=== PATIENT | female | born 1995 ===

== ENCOUNTER 2020-04-12 20:10 | Inpatient (IN) | payer OTHER ==
[~2020-04-12] VITALS: Ht 162.6 cm; Wt 72.6 kg
--- NOTE | ~2020-04-12 | OP ---
PATIENT NAME: YA JULES MEDICAL RECORD: [id number] :94 LOCATION:[facility][id number] ADMISSION DATE:04/13/20 SURGEON: MERRILL QUINTANA MD DATE OF OPERATION: 04/13/2020 PREOPERATIVE DIAGNOSIS: Postoperative bleeding. POSTOPERATIVE DIAGNOSES: 1. Postoperative bleeding. 2. Hemoperitoneum. 3. Active bleeding from the mesosalpinx. OPERATION PERFORMED: 1. Exploratory laparotomy. 2. Evacuation of hemoperitoneum. 3. Suture ligature of vessel. SURGEON: Merrill Quintana MD ANESTHESIOLOGIST: Mansoor Gerard MD ANESTHETICS: General. FINDINGS: Incision and hysterotomy with acute postoperative findings. Mesosalpinx of the right side with an arterial bleeding, less than a 2 mm vessel. SPECIMEN REMOVED: None applicable. ESTIMATED BLOOD LOSS: Intraoperative blood loss 150 mL, blood and clot removed from pelvis 600 mL. FLUIDS: 800 mL lactated Ringer's. URINE OUTPUT: Quantity sufficient. DRAINS: Tamayo to gravity. INDICATION: The patient is status post section with tubal ligation. Called to see the patient for active bleeding incision. The incision was inspected and found to be actively bleeding. The patient was consented for wound exploration and any indicated procedure. DESCRIPTION OF PROCEDURE: After informed consent is assured, the patient is taken to the operating room where anesthetic is obtained and the patient is prepped and draped. The subcuticular stitches removed and the space inspected. Other than some small bleeding vessels, no active bleeding is noted. The fascial incision is inspected and some slow bleeding is noted to come up from the fascial incision. The suture for the fascia is now opened and a large amount of clot is encountered. The clot is removed and the pelvis is copiously irrigated. An Roger retaining retractor is inserted and the uterus is brought to the incision. The tubal ligations sites are inspected and all ligatures are intact. The mesosalpinx of the right side has a small arterial bleeding vessel. This is controlled with suture ligation using a 3-0 Vicryl. After the bleeding vessel is ligated, the pelvis continues to be irrigated until all clot and OPERATIVE REPORT [id number] YA JULES debris are removed. Inspection of the hysterotomy and the peritoneal edges of the bladder flap are inspected and slow bleeding vessels are noted here. Geronimo is placed over this with good effect. The sponge count was not performed prior to this procedure due to its urgency. The tentative count was correct and the fascia is closed with Vicryl. Subcutaneous tissue is irrigated, bleeding vessels cauterized, and the skin now reapproximated with stephen. Pressure dressing is applied. The immediate dermatologist x-ray performed postoperatively reveals no intraabdominal or pelvic retained sponge or instrument. NTS:[id number] Voice Confirmation ID: [id number] DOCUMENT ID: [id number] 04/18/2020 Edited for operation performed list per office, [email or web address]. MERRILL QUINTANA MD CC: [id number] DICTATION DATE: 04/13/20 1711 GALLERY ASSISTANT: 04/14/20 0022 DIS IN 04/15/20 [address] [place] [address]
[2020-04-12 21:08] LABS: BILIRUBIN NEGATIVE (NEGATIVE); GLUCOSE NEGATIVE (NEGATIVE); KETONE NEGATIVE (NEGATIVE); NITRITE NEGATIVE (NEGATIVE); UROBILINOGEN NORMAL (NORMAL)
[2020-04-12 21:09] LABS: RED CELLS - URINE 0-5 /hpf (0-5); WHITE CELLS - URINE 0-5 /hpf (NEGATIVE)
[2020-04-12 21:10] LABS: BACTERIA MODERATE /hpf (NEGATIVE)
[2020-04-12 21:20] LABS: UDS - AMPHET NEGATIVE QUAL (NEGATIVE); UDS - BARB NEGATIVE QUAL (NEGATIVE); UDS - BENZO NEGATIVE QUAL (NEGATIVE); UDS - COCAINE NEGATIVE QUAL (NEGATIVE); UDS - OPIATE NEGATIVE QUAL (NEGATIVE); UDS - PCP NEGATIVE QUAL (NEGATIVE); UDS - THC NEGATIVE QUAL (NEGATIVE)
[2020-04-12 21:57] VITALS: BP 134/80; Ht 162.6 cm; Wt 72.6 kg
[2020-04-13] VITALS (23 sets, daily range): BP systolic 95–131; BP diastolic 51–77
[2020-04-13 07:15] LABS: HEMATOCRIT 33.5 % (36.0-48.0); HEMOGLOBIN 10.4 g/dL (12-16); MCH 22.2 pg (26.0-34.0); MCV 71.6 fL (80.0-100.0); MEAN PLATELET VOLUME 10.3 fL (7.4-10.4); RBC 4.68 10x6/uL (4.00-5.40); RDW 14.1 % (11.5-14.5); WBC 6.3 10x3/uL (4.8-10.8)
--- NOTE | 2020-04-13 09:19 | NUR ---
UTERINE CUT MADE AT 0849.
--- NOTE | 2020-04-13 17:04 | NUR ---
INSTRUMENT COUNT WAS NOT DONE PRIOR TO SURGERY DUE TO EMERGENCY. XRAY WAS CALLED AND DONE AT END OF PROCEDURE. DR QUINTANA STAYED TO LOOK AT XRAY AND WAS CLEAR.
--- NOTE | 2020-04-13 19:33 | NUR ---
REC'D IN BED HOLDING AT THIS TIME. IV SITE TO LEFT HAND PATENT. IV SITE TO RT HAND PATENT. DRESSING TO ABDOMEN CDI. FUNDUS FIRM WITH SMALL LOCHIA NOTED. VSS. NO ACUTE DISTRESS NOTED. Rudi SAGE RN
--- NOTE | 2020-04-13 20:45 | NUR ---
PT IN BED. NO DISTRESS NOTED. UOP ADEQUATE WITH 50 ML NOTED IN UROMETER. WILL MONITOR. Rudi SAGE RN
--- NOTE | 2020-04-13 21:30 | NUR ---
PT REC;D IN BED. IV BEEPING AT THIS TIME. SITE CLEAR AND PATENT. 125 ML NOTED TO MACHADO CATH AT THIS TIME. NO DISTRESS NOTED. Rudi SAGE RN
--- NOTE | 2020-04-13 22:35 | NUR ---
PT REC'D IN BED AT THIS TIME. . NO DISTRESS NOTED AT THIS TIME. UROMETER WITH 125 ML NOTED. WILL CONTINUE TO MONITOR. Rudi SAGE RN
--- NOTE | 2020-04-13 23:30 | NUR ---
PT REC'D IN BED AT THIS TIME. NO DISTRESS NOTED. [id number] ML AT THIS TIME.Rudi SAGE RN
[2020-04-14] VITALS (13 sets, daily range): BP systolic 111–162; BP diastolic 56–81
--- NOTE | 2020-04-14 00:30 | NUR ---
PT RESTING WITH EYES CLOSED AT THIS TIME. EASILY AWAKENED AT THIS TIME. PERICARE PROVIDED AND 200 ML NOTED TO JEANNETTE SAGE RN
--- NOTE | 2020-04-14 02:54 | NUR ---
PT MEDICATED WITH DILAUDID 1 MG FOR PAIN LEVEL OF 6/10. WILL CONTINUE TO MONITOR. Rudi SAGE RN
--- NOTE | 2020-04-14 04:30 | NUR ---
PT REC'D IN BED ASLEEP AT THIS TIME. NO DISTRESS NOTED. UOP 200 ML AT THIS TIME. Rudi SAGE RN
[2020-04-14 05:22] LABS: BASOPHILS 0.1 % (0-2); EOSINOPHILS 0.3 % (0-7); IMMATURE GRANULOCYTES 0.4 % (0-5); LYMPHOCYTES 11.3 % (15-50); MCH 21.9 pg (26.0-34.0); MCHC 30.7 g/dL (31.0-37.0); MCV 71.6 fL (80.0-100.0); MEAN PLATELET VOLUME 10.4 fL (7.4-10.4); MONOCYTES 8.3 % (2-11); NEUTROPHILS 79.6 % (40-80); PLATELET COUNT 149 10x3/uL (130-400); RDW 14.1 % (11.5-14.5)
[2020-04-14 05:28] LABS: RBC 2.78 10x6/uL (4.00-5.40); WBC 9.3 10x3/uL (4.8-10.8)
[2020-04-14 05:29] LABS: HEMATOCRIT 19.9 % (36.0-48.0); HEMOGLOBIN 6.1 g/dL (12-16)
--- NOTE | 2020-04-14 06:10 | NUR ---
DR QUINTANA CALLED AT THIS TIME REGARDING LAB WORK AND ORDER REC'D TO TYPE AND CROSS FOR [address] THEM ON HOLD AT THIS TIME. Rudi SAGE RN
--- NOTE | 2020-04-14 07:12 | NUR ---
BEDSIDE REPORT REC'D. PAIN REASSESSMENT COMPLETED PER EMAR. ASSISTED WITH GETTING INFANT LATCHED PER PT REQUEST. DISCUSSED ADDITIONAL INTERVENTION FOR PAIN D/T REPORT OF NO CHANGE AND REFUSED BY PT AT THIS TIME. PT EDUCATED ON PAIN MANAGEMENT AND INTERVENTIONS AVAILABLE, VERBALIZES UNDERSTANDING AND DENIES QUESTIONS. BULKY DRSG TO LOWER TRANSVERSE ABD INCISION REMAINS IN PLACE, CLEAN DRY AND INTACT. NO DRAINAGE NOTED. WILL CONTINUE TO MONITOR AND COMPLETE ASSESSMENT FOLLOWING BF.
--- NOTE | 2020-04-14 08:11 | NUR ---
SHIFT ASSESSMENT COMPLETED PER FLOWSHEET. VSS. FUNDUS FIRM, MIDLINE AND U2 WITH SCANT RUBRA LOCHIA NOTED. C/O ABD AND INCISIONAL DISCOMFORT, MEDICATED PER EMAR. INFANT PLACED IN OPEN CRIB AND TAKEN TO NBN PER PT REQUEST. SIGNIFICANT OTHER LEAVING AT THIS TIME TO GO HOME TO CHECK TO CHECK ON OLDER CHILDREN AND SHOWER, PRESENT DURING ASSESSMENT AND POC DISCUSSION. INCENTIVE SPIROMETER AND COUGH/DEEP BREATHING DONE WITH GOOD EFFORT. SCD'S ON BLE. POC DISCUSSED WITH PT, VERBALIZES UNDERSTANDING. PERICARE DONE AND PADS AND TOWELS CHANGED. I&O DONE. ENCOURAGED PO FLUID INTAKE. ICE WATER PROVIDED. DENIES ADDITIONAL NEEDS AT THIS TIME. LAYING ON R SIDE. STATES THAT SHE IS GOING TO REST AT THIS TIME. BED IN LOW POSITION WITH SRUPX2. CALL LIGHT AND PHONE WITHIN REACH. WILL CONTINUE TO MONITOR.
--- NOTE | 2020-04-14 09:05 | NUR ---
PAIN REASSESSMENT COMPLETED. RESTING WITH EYES CLOSED IN SEMI-FOWLERS POSITION. RESP REGULAR AND UNLABORED, NO S/S OF DISTRESS NOTED. BED IN LOW POSITION WITH SRUP X2. CALL LIGHT AND PHONE WITHIN REACH. WILL CONTINUE TO MONITOR.
--- NOTE | 2020-04-14 10:30 | NUR ---
RN TO BEDSIDE. PT ASSISTED TO SITTING ON EDGE OF BED. REPORTS "A LITTLE" DIZZINESS, STATES "I DON'T FEEL LIKE I'M GOING TO PASS OUT BUT DEFINITELY A LITTLE DIZZY." ASSISTED BACK TO SEMI-FOWLERS POSITION. C/O ABD AND INCISIONAL DISCOMFORT, MEDICATED PER EMAR PER PT REQUEST. BED IN LOW POSITION WITH SRUP X2. CALL LIGHT AND PHONE WITHIN REACH. REQUEST SCD'S REMAIN OFF OR PERIOD OF TIME. INCENTIVE SPIROMETER DONE WITH GOOD EFFORT. INSTRUCTED NOT TO GET OOB WITHOUT ASSIST, VERBALIZES UNDERSTANDING.
--- NOTE | 2020-04-14 11:23 | NUR ---
PAIN REASSESSMENT COMPLETED. 12/18. ICE WATER PROVIDED. DENIES ADDITIONAL NEEDS. PERICARE DONE, PADS CHANGED. DRSG REMAINS CLEAN DRY AND INTACT WITH NO DRAINAGE.
--- NOTE | 2020-04-14 12:22 | NUR ---
DR. QUINTANA CALLS UNIT. REPORT GIVEN REGARDING PT C/O DIZZINESS WITH SITTING UP. ORDERS REC'D TO PROCEDE WITH TRANSFUSING 2 UNITS PRBC'S.
--- NOTE | 2020-04-14 13:35 | NUR ---
1ST UNIT PRBC TRANSFUSION INITIATED AT 100 MLS/HR TO R HAND, NO S/S OF INFILTRATION NOTED, FLUSHES WITHOUT DIFFICULTY. EDUCATED ON S/S OF PRBC TRANSFUSION REACTION TO REPORT TO RN, VERBALIZES UNDERSTANDING. RN REMAINS AT BEDSIDE AT THIS TIME. BONDING WITH .
--- NOTE | 2020-04-14 13:46 | NUR ---
R HAND PIV INFILTRATED. 18 G PIV TO L HAND FLUSHED WITHOUT DIFFICULTY. PRBC TRANSFUSION PAUSED AND SWITCHED TO L HAND. TOLERATING WELL, NO S/S OF INFILTRATION NOTED. R HAND PIV D/C'D WITH TIP INTACT, BANDAID PLACED.
--- NOTE | 2020-04-14 13:50 | NUR ---
NO S/S OF TRANSFUSION REACTION NOTED. VSS. NO S/S INFILTRATION NOTED TO L HAND PIV. RATE INCREASED TO 150 MLS/HR. WILL CONTINUE TO MONITOR. CONTINUES TO LAINEZ WITH INFANT. DENIES NEEDS AT THIS TIME. BED IN LOW POSITION WITH SRUPX 2. CALL LIGHT AND PHONE WITHIN REACH.
--- NOTE | 2020-04-14 14:05 | NUR ---
VSS. NO S/S OF TRANSFUSION REACTION NOTED. SITTING IN HIGH FOWLERS POSITION ON COMPUTER. FOB BONDING WITH . RATE INCREASED TO 200 MLS/HR. WILL CONTINUE TO MONITOR.
--- NOTE | 2020-04-14 14:24 | OP ---
PATIENT NAME: YA JULES MEDICAL RECORD: [id number] :94 LOCATION:[id number] ADMISSION DATE:04/13/20 SURGEON: MERRILL QUINTANA MD DATE OF OPERATION: 04/13/2020 PREOPERATIVE DIAGNOSES: 1. Labor at 38 weeks gestation. 2. History of section. 3. Unwanted fertility. POSTOPERATIVE DIAGNOSES: 1. Labor at 38 weeks gestation. 2. History of section. 3. Unwanted fertility. PROCEDURES: 1. Repeat low transverse section. 2. tubal ligation using a [place] technique. SURGEON: Merrill Quintana MD [employer] TE[employer]ER: William White. ANESTHESIA: Spinal. FINDINGS: Viable male infant, vertex presentation, Apgars 9 and 9, weight 6 pounds 1 ounce. Meconium stained fluid with a nuchal cord times 1 reduced. Unremarkable uterus, tubes, and ovaries bilaterally. SPECIMENS REMOVED: Tubes bilaterally. SPECIMEN DISPOSITION: Pathology. ESTIMATED BLOOD LOSS: 700 cc. FLUIDS: 2 liters lactated Ringer's. URINE OUTPUT: 400 cc of clear urine. COMPLICATIONS: None. DRAIN: Tamayo to gravity. INDICATIONS: The patient is a 25-year-old multiparous female who presents to labor and delivery with regular contractions. The patient is 38 weeks and 5 days. The patient also has unwanted fertility. Risks, benefits as well as alternatives to tubal ligation have been described to the patient. The patient wishes to proceed. DESCRIPTION OF PROCEDURE: After informed consent was assured, the patient was taken to the operating room where anesthetic was obtained. The patient was now placed in a leftward lateral tilt and prepped and draped. After assessment of the anesthetic, it was found to be adequate, an incision was made over the old scar. This was carried down to the underlying layer of the fascia, which was opened in the midline and extended laterally. Rectus bellies were dissected OPERATIVE REPORT [id number] YA JULES free superiorly and inferiorly and then in the midline. The peritoneum was entered sharply and the peritoneal opening extended. A DeLee all-purpose retractor was inserted and bladder flap developed. Bladder blade was now reinserted into the vesicouterine pouch and a low transverse hysterotomy was performed. Infant was delivered on to the abdomen atraumatically and the cord was doubly clamped and cut with the above findings. Placenta was delivered via Crede maneuver. Uterus exteriorized, cleared of all clot and debris. Uterus was now closed with a running stitch of Vicryl. A naxxob-la-vetpp stitch was applied to the left of midline to obtain hemostasis. Our attention was now directed to the right tube. A window was selected in the mesosalpinx and the space was opened. The ligature was applied to the distal and proximal segment and then the intervening segment of tube, which has been ligated was now removed with Metzenbaum scissors and the ostia cauterized. Attention was directed to the left tube where it was ligated and excised in similar manner. Again, the ostia was cauterized. The uterus and tubes are now returned to the abdomen after irrigation. The hysterotomy was inspected once the uterus was returned to the abdomen and adequate hemostasis was still achieved. Rectus bellies were reapproximated in the midline loosely and the fascia was closed with looped PDS. Sponge, lap, and needle counts were correct times 2. Subcutaneous tissue was irrigated. Bleeding vessels cauterized and the skin now reapproximated with a subcuticular stitch. Steri-Strips and sterile dressing applied. Sponge, lap, needle counts were correct times 3 at the close of this procedure. TRANSINT:[id number] Voice Confirmation ID: [id number] DOCUMENT ID: [id number] MERRILL QUINTANA MD at 1424 CC: [id number] DICTATION DATE: 04/13/20 1004 COMMERCIAL SALES MANAGER: 04/13/20 1410 ADM IN [id number] [place] [address]
--- NOTE | 2020-04-14 14:34 | NUR ---
VSS. NO S/S OF TRANSFUSION REACTION NOTED. L HAND PIV INFUSING WITHOUT DIFFICULTY. RATE INCREASED TO 250 MLS/HR. INFANT RESTING QUIETLY IN OPEN CRIB AT BEDSIDE. DENIES NEEDS AT THIS TIME. BED IN LOW POSITION WITH SRUP X2. CALL LIGHT AND PHONE WITHIN REACH. SCD'S BACK ON. INCENTIVE SPIROMETE DONE WITH GOOD EFFORT. WILL CONTINUE TO MONITOR.
--- NOTE | 2020-04-14 16:26 | NUR ---
1ST UNIT PRBC TRANSFUSION COMPLETED. NO S/S OF TRANSFUSION REACTION NOTED. VSS.
--- NOTE | 2020-04-14 16:33 | NUR ---
C/O ABD AND INCISIONAL DISCOMFORT, REQUESTS PERCOCET AND PROVIDED PER PT REQUEST. VSS. FUNDUS FIRM MIDLINE AND U1 WITH SCANT RUBRA LOCHIA, NO CLOTS NOTED. DRSG TO LOWER TRANSVERSE ABD INCISION CLEAN DRY AND INTACT, NO DRAINAGE NOTED.
--- NOTE | 2020-04-14 16:45 | NUR ---
2ND UNIT PRBC TRANSFUSION INITIATED TO L HAND PIV, INFUSING WITHOUT DIFFICULTY, NO S/S OF INFILTRATION NOTED, 100 MLS/HR. MACHADO D/C'D WITH 900 MLS CLEAR LIGHT YELLOW URINE EMPTIED. ASSISTED TO SITTING POSITION, DENIES DIZZINESS. ASSISTED TO STANDING POSITION WITH MOD ASSIST, INITIALLY DENIES DIZZINESS BUT FOLLOWING STANDING FOR SEVERAL MINUTES REPORTS DIZZINESS, PERICARE DONE, PADS AND PANTIES PLACED. CHUX AND TOWELS ON BED CHANGED. ASSISTED BACK TO BED. ASSISTED BACK TO BED AT 1657, TEARFUL AND C/O PAIN 9/10, MEDICATED PER EMAR. INSTRUCTED NOT TO GET OOB WITHOUT ASSIST, VERBALIZES UNDERSTANDING. CALL LIGHT AND PHONE PLACED WITHIN REACH. SPOUSE AT BEDSIDE, SUPPORTIVE AND ATTENTIVE TO PT AND INFANT NEEDS.
--- NOTE | 2020-04-14 17:03 | NUR ---
VSS. NO S/S OF TRANSFUSION REACTION. PRBC RATE INCREASED TO 150 MLS/HR. PT TAKING SLOW DEEP BREATHS. BED IN LOW POSITION WITH SRUP X2. CALL LIGHT AND PHONE WITHIN REACH. WILL CONTINUE TO MONITOR.
--- NOTE | 2020-04-14 17:25 | NUR ---
VSS. NO S/S OF TRANSFUSION REACTION NOTED. RATE INCREASED TO 200 MLS/HR. SITTING IN HIGH FOWLERS POSITION EATING DINNER TRAY. INFANT RESTING IN OPEN CRIB AT BEDSIDE. PAIN NOW 3-01/18. ICE WATER PROVIDED.
--- NOTE | 2020-04-14 18:28 | NUR ---
2ND UNIT PRBC TRANSFUSION COMPLETED AND SWITCHED TO FLUSH. TOLERATED WELL, NO S/S OF TRANSFUSION REACTION NOTED. VSS. DENIES NEEDS. BED IN LOW POSITION WITH SRUP X2. CALL LIGHT AND PHONE WITHIN REACH. WILL CONTINUE TO MONITOR.
--- NOTE | 2020-04-14 19:06 | NUR ---
THIS RN AND Rudi LABOY RN TO BEDSIDE FOR BEDSIDE SHIFT REPORT. PT AA&O X4 IN HIGH NAIDU'S. PM POC DISCUSSED W/PT. PT VERBALIZES UNDERSTANDING AND AGREEABLE. PT RATES PAIN 4/10. NO REQUEST FOR PAIN INTEVENTIONS AT THIS TIME. PT INFORMED THIS RN WILL RETURN IN A FEW MINUTES TO PERFORM SHIFT ASSESSMENT. PT DENIES NEEDS AT THIS TIME.
--- NOTE | 2020-04-14 19:30 | NUR ---
Leandra LAKE RN REPORTS PT HAS REPORTED TO HER THAT SHE FEELS LIKE HER HEART IS BEATING IRREGULARLY. Chevy COWART RN TO BEDSIDE TO ASSESS PT AND TO PLACE ON ECG LEADS.
--- NOTE | 2020-04-14 19:45 | NUR ---
THIS RN TO BEDSIDE TO ASSESS PT. PT NOW REPORTS SHE FEELS MORE LIKE IT'S HER STOMACH AND FEELS NAUSEATED. VITAL SIGNS OBTAINED, HEART RATE AND BREATHSOUNDS ASCULATED. LUNGS CL/=, HHR. INCISION W/ABD DRESSING C/D/I. NORMAL LOCHIA NOTED. PT'S PUPILS ARE CONSTRICTED. PT REPORTS SHE FEELS WEAK. RN TO CONTACT .
--- NOTE | 2020-04-14 20:00 | NUR ---
DR QUINTANA CALLED WITH REPORT THAT BEGAN C/O FEELING LIKE HER HEART WAS PALPATING AND THEN IT TURNED TO NAUSEA. VITAL SIGNS ARE STABLE. PT HAS BEEN PLACED ON ECG. HEART RATE IS REG. T/O ORDERS REC'D TO [facility] PEPCID 20MG IVP Q 8HR AND ZOFRAN 8MG IVP Q 8HRS.
--- NOTE | 2020-04-14 20:27 | NUR ---
ZOFRA 8MG SIVP GIVEN OVER 5 MINS. TEACHING PROVIDED. PT CURENTLY ATTEMPTING TO EAT SOME FRIES PROVIDED PER SIG OTHER. THIS RN RECOMMENDS JELLO VS FRIES. PT AGREEABLE. ONE CUP JELLO SERVED. WILL CONTINUE TO MONITOR.
--- NOTE | 2020-04-14 20:50 | NUR ---
Chevy FORMAN RN TO BEDSIDE TO ASSIST PT UP TO BR. PT ABLE TO VOID AND RETURNS TO BED W/OUT ASSISTANCE. PT AMBULATES SLOWLY AND BENT OVER. STEADY GAIT NOTED, BUT SLOW. PT NOW C/O ABD PAIN 05/20. DUE TO PT RECENT NAUSEA, PLANS FOR IV PAIN MEDICATION ADMIN.
--- NOTE | 2020-04-14 21:00 | NUR ---
TO BEDSIDE. PT REPORTS HER NAUSEA IS BEGINNING TO GO AWAY. PT HAS EATEN AND TOLERATED APPROX 90% OF CUP OF JELLO. PT INFORMED THAT RN AWAITING PHARMACY TO PROVIDE PEPCID FOR ADMIN. PT VERBALIZES UNDERSTANDING. SIG OTHER AT BEDSIDE. BABY AT PT'S SIDE.
--- NOTE | 2020-04-14 21:30 | NUR ---
TO BEDSIDE TO ADMIN 2MG DILAUDID SIVP OVER 5 MINS. PT TOLERATED WELL. PT ENCOURAGED TO REST W/PLANS TO INCREASE INTAKE OF FOOD. PT AGREEABLE. BED LOW, SIDE RAILS UP X 2. CALL LIGHT AND PHONE AT PT'S SIDE. SIG OTHER ON SOFA. BABY IN OPEN CRIB AT BEDSIDE.
--- NOTE | 2020-04-14 21:40 | NUR ---
RN TO BEDSIDE TO ADMIN PEPCID 20MG SIVP OVER 5 MINS. PT NOW NAUSEA HAS SUBSIDED. PT ENCOURAGED TO EAT SMALL AMOUNT FOOD SHE FEELS LIKE IT TO INCREASE NOURISHMENT INTAKE. PT AGREEABLE. DECLINES ANYTHING AT THIS TIME.
--- NOTE | 2020-04-14 22:30 | NUR ---
THIS RN TO BEDSIDE FOR PAIN REASSESMENT AND NEEDS. PT AA&O SITTING UP IN BED. REPORTS NAUSEA IS GONE, PAIN IS 2/10. FRESH ICE WATER SERVED AND PT REPORTS SHE IS GOING TO ATTEMPT TO EAT SALTINE CRACKERS AT THIS TIME. DENIES FURTHER NEEDS. BED LOW, SIDE RAILS UP X 2. CALL LIGHT AT BEDSIDE.
--- NOTE | 2020-04-14 23:45 | NUR ---
ROUNDS MADE. VITAL SIGNS OBTAINED. PAIN AND NEEDS ASSESSED. PT SITTING UP IN BED TENDING TO BABY. REPORTS SHE IS FEELING BETTER. DENIES NAUSEA, RATES PAIN 2/10. REPORTS SHE WAS ABLE TO EAT 2 ADILSON CRACKERS AND TOLERATED WELL. DECLINES OFFERS TO BRING HER ANYTHING TO EAT OR DRINK AT THIS TIME. BED LOW, SIDE RAILS UP X 2. CALL LIGHT AT BEDSIDE.
--- NOTE | 2020-04-15 02:00 | NUR ---
ROUNDS MADE. PT AWAKE SITTING UP IN BED. PAIN AND NEEDS ASSESSED. PT REPORTS INCISIONAL/ABD PAIN /10. PAIN MEDICATION OFFERED. PT ACCEPS. PERCOCET 5/325MG 1 TAB GIVEN. WHILE AT BEDSIDE, PT REQUEST TO GET UP TO THE BR. PT OOB W/OUT ASSISTANCE. DENIES DIZZINESS. AMBULATORY W/SLOW, BUT STEADY GAIT TO BR W/OUT ASSISTANCE. INSTRUCTED ON STANDING STRAIGHT SHE CAN. PT AGREEABLE AND COMPLIANT. PT ABLE TO VOID W/OUT DIFFICULTY. RETURNS TO BED. DENIES FURTHER NEEDS.
--- NOTE | 2020-04-15 04:30 | NUR ---
ROUNDS MADE. PT LYING IN HIGH NAIDU'S W/EYES CLOSED. RESP EVEN AND UNLABORED. PT OPENS EYES SPONTANEOUSLY W/NOISE MADE. PAIN AND NEEDS ASSESSED. PT REPORTS PAIN 2/10. DENIES NEEDS.
--- NOTE | 2020-04-15 06:30 | NUR ---
ROUNDS MADE. PT AA&O X 4 SITTING UP IN BED W/BABY UP IN ARMS. PAIN AND NEEDS ASSESSED. PT REPORTS PAIN IS GETTING WORSE AND IS REQUESTING PAIN MEDICATION. DECLINES OFFERS TO BRING HER SOMETHING TO DRINK.
[2020-04-15 07:46] VITALS: BP 132/74
--- NOTE | 2020-04-15 07:55 | NUR ---
ASSESSMENT DONE. SITTING UP IN BED. INFANT IN ROOM. DENIES NEEDS. ABD SOFT-BOWEL SOUNDS PRESENT. STATES IS PASSING FLATUS AND VOIDING WITHOUT PROBLEMS. DENIES NEEDS AT THIS TIME.
--- NOTE | 2020-04-15 09:41 | NUR ---
DR QUINTANA VISITS WITH PT.
[2020-04-15] MEDS ORDERED: IBUPROFEN800 MG PO (10:10)
[2020-04-15] MEDS ORDERED: PERCOCET 7.5/321 TAB PO (10:11)
--- NOTE | 2020-04-15 10:30 | NUR ---
PT SITTING UP IN BED. TALKING ON PHONE. DENIES C/O OR NEEDS.
[2020-04-15] MEDS ORDERED: FERROUS SULFAT325 MG PO (11:33)
--- NOTE | 2020-04-15 11:50 | NUR ---
PT SITTING UP IN BED. CARING FOR INFANT. STATES DESIRE TO SHOWER. SO TO CAR TO RETRIEVE PT CLOTHING.
--- NOTE | 2020-04-15 12:45 | NUR ---
DR QUINTANA NOTIFIED OF NO REPEAT H/H POST TRANSFUSION DONE YESTERDAY. ORDER RECEIVED TO OBTAIN H/H AND PT TO GO AHEAD WITH DISCHARGE.
--- NOTE | 2020-04-15 13:05 | NUR ---
PT C/O INCISIONAL PAIN OF "7" ON 0-10 PAIN SCALE. PERCOCET 10/325 GIVEN PO ORDERED. PT INSTRUCTED ON MED. VERBALIZES UNDERSTANDING. LAB HERE TO OBTAIN ORDERED LABWORK.
--- NOTE | 2020-04-15 13:15 | NUR ---
DISCHARGE INSTRUCTIONS GIVEN TO PT. PT VERBALIZES UNDERSTANDING OF ALL INSTRUCTIONS. COPIES OF INSTRUCTIONS GIVEN TO PT. PT GIVEN RX FOR PERCOCET AND MOTRIN. SL DC'D WITH CATHELON INTACT. PRESSURE BANDAGE TO SITE. PT PREPARES FOR DISCHARGE.
[2020-04-15 13:28] LABS: HEMATOCRIT 24.3 % (36.0-48.0); HEMOGLOBIN 7.8 g/dL (12-16)
--- NOTE | 2020-04-15 13:30 | NUR ---
PT READY FOR DISCHARGE. INFANT SECURED IN CARSEAT AND CARRIED BY FOB. PT DISCHARGED IN STABLE CONDITION VIA WHEELCHAIR TO PRIVATE VEHICLE.
[2020-04-16 07:14] LABS: RAPID PLASMA REAGIN Non Reactive (Non Reactive)
== END 2020-04-15 13:30 | disposition home or self-care (01) | DRG 783 ==
LOC: D.LDO 20:10 → D.LD 21:47 → D.LDO 04-13 06:44 → D.LD 04-13 06:45
PROVIDERS: ADMIT Obstetrics & Gynecology; ATTEND Obstetrics & Gynecology
PROC: 0UT70ZZ Resection of Bilateral Fallopian Tubes, Open Approach (ICD-10-PCS; 2020-04-13)
PROC: 04LY0ZZ Occlusion of Lower Artery, Open Approach (ICD-10-PCS; 2020-04-13)
PROC: 10D00Z1 Extraction of Products of Conception, Low, Open Approach (ICD-10-PCS; principal; 2020-04-13 16:00)
DX: O34.211 Maternal care for low transverse scar from previous cesarean delivery (principal); K66.1 Hemoperitoneum; I97.620 Postprocedural hemorrhage of a circulatory system organ or structure following other procedure; O72.1 Other immediate postpartum hemorrhage; Z3A.38 38 weeks gestation of pregnancy; Z37.0 Single live birth; Z30.2 Encounter for sterilization; Y83.8 Other surgical procedures as the cause of abnormal reaction of the patient, or of later complication, without mention of misadventure at the time of the procedure; Y92.239 Unspecified place in hospital as the place of occurrence of the external cause; O90.81 Anemia of the puerperium; D64.9 Anemia, unspecified